=== PATIENT | female | born 1985 | race Two or more races ===

== ENCOUNTER → 2017-07-27 | Emergency (ER) | payer OTHER ==
[~2017-07-27] VITALS: Ht 152.4 cm; Wt 47.6 kg
[~2017-07-27] MED LIST: SYNTHROID50 MCG PO
== END | disposition left against medical advice (07) ==
LOC: ER 00:32
DX: Z53.20 Procedure and treatment not carried out because of patient's decision for unspecified reasons (principal)

== ENCOUNTER 2019-03-04 14:57 | Emergency (ER) | payer OTHER ==
[~2019-03-04] VITALS: Ht 154.9 cm; Wt 43.1 kg
== END 2019-03-04 22:09 | disposition home or self-care (01) ==
LOC: ER 14:57
DX: J11.1 Influenza due to unidentified influenza virus with other respiratory manifestations (principal); B96.0 Mycoplasma pneumoniae [M. pneumoniae] as the cause of diseases classified elsewhere